=== PATIENT | male | born 1985 ===

== ENCOUNTER → 2020-03-08 | Outpatient (CLI) | payer BC, OTHER | END | disposition home or self-care (01) | LOC: LAB SHORT 15:58 → LAB EV 15:58 | DX: Z20.828 Contact with and (suspected) exposure to other viral communicable diseases (principal) | CPT/HCPCS: U0003 ==

== ENCOUNTER 2020-10-01 15:49 | Emergency (ER) | payer BC ==
[~2020-10-01] VITALS: Ht 182.9 cm; Wt 93.0 kg
[2020-10-01] MEDS ORDERED: ERYT1OIN LEFTEYE (18:26)
== END 2020-10-01 18:34 | disposition home or self-care (01) ==
LOC: ER 15:49
DX: T15.02XA Foreign body in cornea, left eye, initial encounter (principal); Z23 Encounter for immunization
CPT/HCPCS: 65222; 90471; 90714; 99283; A9270